=== PATIENT | female | born 1980 | race Caucasian/White ===

== ENCOUNTER → 2018-03-04 | Outpatient (CLI) | payer BC | LOC: FIMAGING 08:48 | PROVIDERS: ATTEND Obstetrics & Gynecology | DX: O09.511 Supervision of elderly primigravida, first trimester (principal); Z3A.12 12 weeks gestation of pregnancy ==

== ENCOUNTER → 2018-05-04 | Outpatient (CLI) | payer BC | LOC: FIMAGING 08:11 | PROVIDERS: ATTEND Obstetrics & Gynecology | DX: O09.512 Supervision of elderly primigravida, second trimester (principal); Z3A.21 21 weeks gestation of pregnancy ==

== ENCOUNTER 2018-09-18 12:45 | Inpatient (IN) | payer BC ==
[2018-09-18] MEDS ORDERED: OLIVE OIL 118 ML BTL MISC PRN (14:32)
[2018-09-18] MEDS ORDERED: MISOPROSTOL 200 MCG TAB PR PRN (14:32)
[2018-09-18] MEDS ORDERED: TERBUTALINE SULFATE 1 MG/ML VIAL IV PRN (14:32)
[2018-09-18] MEDS ORDERED: LIDOCAINE 1% 300 MG/30 ML SDV SC PRN (14:32)
[2018-09-18] MEDS ORDERED: EPSOM SALT 454 GM TP PRN (14:32)
[2018-09-18] MEDS ORDERED: IBUPROFEN 600 MG TAB PO PRN (14:32)
[2018-09-18] MEDS ORDERED: LR 1,000 ML IV PRN (14:32)
[2018-09-18] MEDS ORDERED: OXYTOCIN/RINGERS LACTATE 1,000 ML IV PRN (14:32)
--- NOTE | 2018-09-18 15:14 | PDGENHP ---
History and Physical History and Physical: Care: [facility] HPI: Patient is a 37yo @ 41 weeks that presents to L&D with complaints of contractions since yesterday, but worse since t EDC: 09/12/18 which is based on Ultrasound at 8 weeks. Her is complicated by: AMA, anemia Review of Systems: Constitutional: Denies any fever, chills, or fatigue HEENT: denies any visual changes, difficulty swallowing, hearing loss Cardiovascular: Denies any chest pain, palpitations, leg swelling Respiratory: denies any cough, wheezing, or shortness of breathe GI: Denies any nausea, vomiting, diarrhea, constipation : denies any dysuria, urgency, frequency, vaginal bleeding Musculoskeletal: denies any muscle or bone pain Skin: denies any rashes Neuro: denies any headache, seizures, lightheadedness, dizziness, or loss of consciousness Psychiatric: denies any depression, anxiety, or SI/HI thoughts HISTORY: Previous OB history: G1 Past medical history: none Past surgical history: none Social: Denies any alcohol, tobacco, or drug use. Family history: Not relevant Medications: PNV, iron Allergies (list reaction): NKDA LABS: Rh: A+ ABS: Neg Rubella: Immune HbsAg: NR HIV: NR VDRL: NR 1hr: 86 GC: Neg Chlamydia: Neg Pap: Normal GBS: negative BMI: (prepreg) 19 PHYSICAL EXAM: Constitutional: WN, A&Ox3 HEENT: normocephalic atraumatic, supple Skin: Warm, dry, intact Heart: RRR, no murmur Chest: CTA-B Abdomen: Soft, nontender, gravid SVE: 3/80/-2 Extremities: edema, negative homans sign Neuro: grossly normal Psych: normal affect assessment: FHT baseline 135 +accels, no decels, moderate variability Contractions: toco q 4-6 Assessment: 1) [id number] with IUP@ 2) early labor 3) GBS negative 4) Cat 1 FHR tracing Plan: 1) Admit to L&D 2) expectant management 3) pain management PRN 4) IA 5) anticipate Today's visit was approximately 30 min, of which >50% of visit 20 min, was spent face to face with pt on direct counseling/coordination of care.
[2018-09-18] MEDS ORDERED: LIDOCAINE 1% 300 MG/30 ML SDV ONE (18:20)
[2018-09-18] MEDS ORDERED: OLIVE OIL 118 ML BTL ONE (18:20)
[2018-09-18] MEDS ORDERED: AMMONIA AROMATIC 1 EACH AMP IH ONE (18:21)
[2018-09-18] MEDS ORDERED: OXYTOCIN 10 UNIT/ML VIAL ONE (18:21)
[2018-09-18] MEDS ORDERED: TERBUTALINE SULFATE 1 MG/ML VIAL ONE (18:21)
[2018-09-18] MEDS ORDERED: MISOPROSTOL 200 MCG TAB ONE (18:21)
--- NOTE | 2018-09-18 18:23 | OBPROG ---
Labor Progress Note Assessment/Plan: Assessment: [id number] with IUP@ 40-6ks early/active labor GBS Negative FHR 135 Plan: cont ambulation acupuncture consult expectant management 09/18/18 17:58 Subjective/Intrapartum Course: 09/18/18 18:23 Pt breathing through contractions. Desires vaginal exam. She declines pain relief meds. She is ambulating and considering acupuncture. - SVE Dilation (cm): 5 Effacement (%): 80 Station: -1 Membranes: SROM Amniotic Fluid Color: Clear - Contraction Pattern Assessment Current Contraction Pattern: Regular - FHR Assessment King FHR (bpm): 135 Oxytocin Orders Assessment - Pre-Induction/Augmentation Assessment Gestational Age: 40 week(s) and 6 day(s) ICD10 Worksheet Patient Problems: Problems Problem Status Onset Labor and delivery, indication for care Acute - ICD10 Problem Qualifiers (1) Labor and delivery, indication for care
[2018-09-18] MEDS ORDERED: ONDANSETRON DISINTEGRATING 4 MG TAB PO PRN (20:39)
--- NOTE | 2018-09-18 20:40 | OBPROG ---
Labor Progress Note Assessment/Plan: Assessment: [id number] with IUP@ 40-6ks early/active labor GBS Negative FHR 135 Plan: cont ambulation/position changes expectant management cont acupuncture reassess 2hr/PRN Subjective/Intrapartum Course: 09/18/18 18:23 Pt breathing through contractions. Desires vaginal exam. She declines pain relief meds. She is ambulating and considering acupuncture. - SVE Membranes: SROM Amniotic Fluid Color: Clear - Contraction Pattern Assessment Current Contraction Pattern: Regular - FHR Assessment King FHR (bpm): 142 Oxytocin Orders Assessment - Pre-Induction/Augmentation Assessment Gestational Age: 40 week(s) and 6 day(s) ICD10 Worksheet Patient Problems: Problems Problem Status Onset Labor and delivery, indication for care Acute - ICD10 Problem Qualifiers (1) Labor and delivery, indication for care
[2018-09-18] MEDS ORDERED: diphenhydrAMINE 25 MG CAP PO PRN ×2 (21:39→22:13)
--- NOTE | 2018-09-18 22:23 | OBPROG ---
Labor Progress Note Assessment/Plan: Assessment: [id number] with IUP@ 40-6ks early/active labor GBS Negative FHR 142 Plan: cont ambulation/position changes expectant management Reassess 2hr/PRN Subjective/Intrapartum Course: 09/18/18 18:23 Pt breathing through contractions. Desires vaginal exam. She declines pain relief meds. She is ambulating and considering acupuncture. - SVE Dilation (cm): 6 Effacement (%): 75 Station: -1 Membranes: SROM Amniotic Fluid Color: Clear - Contraction Pattern Assessment Current Contraction Pattern: Regular - FHR Assessment King FHR (bpm): 142 Oxytocin Orders Assessment - Pre-Induction/Augmentation Assessment Gestational Age: 40 week(s) and 6 day(s) ICD10 Worksheet Patient Problems: Problems Problem Status Onset Labor and delivery, indication for care Acute - ICD10 Problem Qualifiers (1) Labor and delivery, indication for care
--- NOTE | 2018-09-19 03:54 | OBPROG ---
Labor Progress Note Assessment/Plan: Assessment: [id number] with IUP@ 40-6ks early/active labor GBS Negative FHR 155 SROM- MSF Plan: cont ambulation/position changes expectant management labor down Reassess 2hr/PRN Subjective/Intrapartum Course: 09/18/18 18:23 Pt breathing through contractions. Desires vaginal exam. She declines pain relief meds. She is ambulating and considering acupuncture. 09/19/18 03:47 Pt doing well, breathing through contractions. starting to have some pressure and feels urge to push. - SVE Dilation (cm): 9 Effacement (%): 80 Station: -1 Membranes: SROM Amniotic Fluid Color: Clear - Contraction Pattern Assessment Current Contraction Pattern: Regular - FHR Assessment King FHR (bpm): 150 Oxytocin Orders Assessment - Pre-Induction/Augmentation Assessment Gestational Age: 40 week(s) and 6 day(s) ICD10 Worksheet Patient Problems: Problems Problem Status Onset Labor and delivery, indication for care Acute - ICD10 Problem Qualifiers (1) Labor and delivery, indication for care
[2018-09-19 07:27] LABS: PLATELET COUNT 131 10^3/uL (150-400)
[2018-09-19] MEDS ORDERED: OXYTOCIN/RINGERS LACTATE 30 UNIT/500 ML BAG IV ONE (07:28)
[2018-09-19] MEDS ORDERED: OXYTOCIN/LR *STANDARD DOSE PROTOCOL IV SCH (08:00)
--- NOTE | 2018-09-19 08:11 | OBPROG ---
Labor Progress Note Assessment/Plan: Assessment: [id number] with IUP@ 40-6ks active labor/protracted GBS Negative FHR 155 SROM- MSF Plan: cont ambulation/position changes expectant management consider pitocin augmentation- pt declines, will start nipple stimulation Reassess 2hr/PRN notified Dr Fraesr of protracted labor 09/19/18 11:10 Subjective/Intrapartum Course: 09/18/18 18:23 Pt breathing through contractions. Desires vaginal exam. She declines pain relief meds. She is ambulating and considering acupuncture. 09/19/18 03:47 Pt doing well, breathing through contractions. starting to have some pressure and feels urge to push. 09/19/18 05:30 Pt involuntarily pushing with contractions. She has some urges to have BM and will attempt with no answer. She is using nitrous off and on for pain relief. JEMIMA Lang, @ BS and supportive. Billet Examiner present. Objective: 09/19/18 07:20 - SVE Dilation (cm): 10 Effacement (%): 100 Station: 0 Membranes: SROM Amniotic Fluid Color: Thick Meconium - Contraction Pattern Assessment Current Contraction Pattern: Irregular - FHR Assessment King FHR (bpm): 140 (early and variable decels noted) FHR Pattern Variability: Moderate FHR Category: 2 Oxytocin Orders Assessment - Pre-Induction/Augmentation Assessment Gestational Age: 40 week(s) and 6 day(s) ICD10 Worksheet Patient Problems: Problems Problem Status Onset Labor and delivery, indication for care Acute - ICD10 Problem Qualifiers (1) Labor and delivery, indication for care
--- NOTE | 2018-09-19 08:16 | OBPROG ---
Labor Progress Note Assessment/Plan: Assessment: [id number] with IUP@ 40-6ks GBS Negative cat 2 FHR tracing SROM- MSF Protracted labor, complete x 6+ hours Plan: start pitocin per protocol reposition consulted Dr Ford- agrees to start pitocin and will start pushing once contractions more frequent anticipate 09/19/18 08:16 Subjective/Intrapartum Course: 09/18/18 18:23 Pt breathing through contractions. Desires vaginal exam. She declines pain relief meds. She is ambulating and considering acupuncture. 09/19/18 03:47 Pt doing well, breathing through contractions. starting to have some pressure and feels urge to push. Objective: 09/19/18 07:20 - SVE Dilation (cm): 10 Effacement (%): 100 Station: 0 Membranes: SROM Amniotic Fluid Color: Thick Meconium - Contraction Pattern Assessment Current Contraction Pattern: Irregular - FHR Assessment King FHR (bpm): 120 FHR Pattern Variability: Moderate FHR Category: 2 Oxytocin Orders Assessment - Pre-Induction/Augmentation Assessment Gestational Age: 40 week(s) and 6 day(s) ICD10 Worksheet Patient Problems: Problems Problem Status Onset Labor and delivery, indication for care Acute - ICD10 Problem Qualifiers (1) Labor and delivery, indication for care
[2018-09-19] MEDS ORDERED: ONDANSETRON 4 MG/2 ML VIAL IVP PRN (09:01)
--- NOTE | 2018-09-19 09:13 | SOAPPROG ---
SOAP Progress Note Assessment/Plan: Assessment: Rebellious St qi and qi/blood stagnation Pulse: Rapid, chi-slightly weak Tongue: Red Plan: Calm Stomach qi and move qi and blood 1st Acupuncture treatment points: [id number]> E-stim., SP6-SP4> E-stim, LV3-SP6> E-Stim. KD3, SP9,8, UB67, UB60, LI4, GB21 Ear: shenmen, pt zero, st, muscle relaxation, Sp, LV, KD Needle retention time an hour but after needles removed acupressure performed for an additional two hours during bath. Acupressure points: LJ Scalp, St ch., Sp ch., ear points, gb21. Then once in bed again did a second set of Acupuncture needle points: Calf points zaina, arm only on right side point zaina, kd3, lv3, sp10, st34>e-stim., ub31-34> e-stim. Needle retention time another 60 minutes. 09/18/18 09:05 09/18/18 09:14 09/18/18 09:28 09/18/18 09:37 Subjective: Patient dilated at 5cm currently, has contractions mild to severe every 3-5 minutes, belching, burping, nausea, gassy, no appetite, thirst some but sipping only on h2o, intense pain, especially on the right lower pelvic area, worse with increased pillow stacking to open pelvic. Back pain, especially on side. Energy-good, sleep- not since 1:30am 09/17/18 mini naps, urination- no problems. Objective: Laboratory Results 09/19/18 07:20 Patient slightly pale in color, mood was calm. - Time Spent With Patient Time Spent With Patient: Total face time spent with patient four hours. Total Acupuncture needle retention time spent with patient 2 hours. Total face to face acupressure time 2 hours. ICD10 Worksheet Patient Problems: Problems Problem Status Onset Labor and delivery, indication for care Acute
[2018-09-19] MEDS ORDERED: HYDROCORTISONE 0.5% CREAM TP PRN (12:52)
[2018-09-19] MEDS ORDERED: SIMETHICONE 80 MG TAB CHEW PO PRN (12:52)
--- NOTE | 2018-09-19 12:59 | OBDEL ---
Info Type: Vaginal Presentation at Delivery: Vertex L&D Analgesia/Anesthesia Type: Nitrous GBS+: No Intrapartum Medications: Generic Name Dose Route Start Last Admin Trade Name Freq PRN Reason Stop Dose Admin Diphenhydramine HCl 25 mg 09/18/18 21:39 09/18/18 21:48 Benadryl PO 03/17/19 21:38 25 mg Q6HRS PRN Administration Itching Oxytocin/Lactated Ringer's 500 mls @ 0 mls/hr 09/19/18 08:00 09/19/18 07:42 Pitocin 30 Units/Lr (Premix) IV 03/18/19 07:59 500 mls CONT CAMILO Administration Protocol Per Protocol Ondansetron HCl 4 mg 09/18/18 20:39 09/18/18 21:06 Zofran Odt PO 03/17/19 20:38 4 mg Q6HRS PRN Administration Nausea/Vomiting, Use 1st Ondansetron HCl 4 mg 09/19/18 09:01 09/19/18 09:06 Zofran IVP 03/18/19 09:00 4 mg Q4HRS PRN Administration Nausea/Vomiting, Can't Take PO Discontinued Medications Generic Name Dose Route Start Last Admin Trade Name Freq PRN Reason Stop Dose Admin Ibuprofen 600 mg 09/18/18 14:32 09/19/18 12:29 Motrin PO 600 mg ONCE PRN Administration post , pain - Hospital Course Intrapartum: 09/18/18 18:23 Pt breathing through contractions. Desires vaginal exam. She declines pain relief meds. She is ambulating and considering acupuncture. 09/19/18 03:47 Pt doing well, breathing through contractions. starting to have some pressure and feels urge to push. 09/19/18 05:30 Pt involuntarily pushing with contractions. She has some urges to have BM and will attempt with no answer. She is using nitrous off and on for pain relief. JEMIMA Lang, @ BS and supportive. Long Term present. Indications for Delivery: Spontaneous Labor, SROM Vaginal Delivery - Delivery Provider Delivery Physician/CNM: Kaya Heller - Labor and Delivery Onset of Contractions Date: 09/18/18 Onset of Contractions Time: 01:30 Onset of Contractions Type: Augmented Rupture of Membranes Date: 09/18/18 Rupture of Membranes Time: 14:30 Rupture of Membranes Type: Spontaneous Amniotic Fluid Color: Thick Meconium Dilation Complete Date: 09/19/18 Dilation Complete Time: 01:00 Placenta Delivery Date: 09/19/18 Placenta Delivery Time: 10:24 Total Hours of Labor: 33 Laceration: 2nd Degree Repair: 3-0, 4-0, Vicryl, Chromic Vaginal Sponge Count Correct: Yes Vaginal Needle Count Correct: Yes Vaginal Sweep Performed: Yes EBL: 250 Delivery Events: None Delivery Comment: Dr Ford called for vacuum 2/2 prolong pushing and decelerations. Vacuum was applied and 2 pulls were used to bring head under pubic bone, vaccuum was then taken off and baby delivered without difficulty. Cord Gases: Cord Gases Cord Blood PCO2 51.1 mmHg (37-60) 09/19/18 10:23 Cord Base Excess -8.0 mEq/L (-13.6--3.2) 09/19/18 10:23 Cord ABG pH 7.22 (7.10-7.37) 09/19/18 10:23 Cord VBG pH 7.28 (7.20-7.42) 09/19/18 10:23 - Medications Labor Augmentation/Induction Methods Used: Pitocin Labor Augmentation/Induction Indication: Inadequate Contraction Frequency, Inadequate Contraction Strength Operative Report - Delivery Cord Gases: Cord Gases Cord Blood PCO2 51.1 mmHg (37-60) 09/19/18 10:23 Cord Base Excess -8.0 mEq/L (-13.6--3.2) 09/19/18 10:23 Cord ABG pH 7.22 (7.10-7.37) 09/19/18 10:23 Cord VBG pH 7.28 (7.20-7.42) 09/19/18 10:23 [place] Data JAYCE: 09/12/18 Gestational Age: 41 week(s) and 0 day(s) King Delivery Date: 09/19/18 Delivery Time: 10:18 Sex of Infant: Female ICD10 Worksheet Patient Problems: Problems Problem Status Onset Labor and delivery, indication for care Acute Meconium in amniotic fluid Acute - ICD10 Problem Qualifiers (1) Labor and delivery, indication for care (2) Meconium in amniotic fluid
[2018-09-19] MEDS: IBUPROFEN 600 MG TAB PO SCH (19:36)
[2018-09-19] MEDS: ACETAMINOPHEN 325 MG TAB PO SCH (19:37)
[2018-09-20] MEDS: IBUPROFEN 600 MG TAB PO SCH ×4 (01:35→20:16)
[2018-09-20] MEDS: ACETAMINOPHEN 325 MG TAB PO SCH ×4 (02:24→20:16)
[2018-09-20] MEDS: DOCUSATE SODIUM 100 MG CAP PO PRN ×2 (12:46→20:17)
--- NOTE | 2018-09-20 13:33 | OBPP ---
Progress Note Assessment/Plan: Assessment: Plan: 09/20/18 13:33 PPD #1 Establishing Plans discharge home tomorrow 09/20/18 13:33 Subjective/ Course: 09/20/18 13:38 Doing well. States she is sore but pain well controlled with tylenol and ibuprofen. bleeding minimal. Baby has been latching well today and nursing. She is pumping as well as baby is jaundiced and requiring bili lights. Happy with experience. Objective: 09/19/18 22:20 Patient ABO/Rh A POSITIVE 09/19/18 07:20 Temp Pulse Resp BP Pulse Ox 36.1 C 89 18 102/63 93 09/20/18 08:00 09/20/18 08:00 09/20/18 08:00 09/20/18 08:00 09/19/18 20:00 Breasts: Nipples intact bilaterally, breasts soft Uterine Position/Fundal Height: Umbilicus -1 Uterine Tone: Firm
[2018-09-21] MEDS: IBUPROFEN 600 MG TAB PO SCH ×3 (04:20→14:10)
[2018-09-21] MEDS: ACETAMINOPHEN 325 MG TAB PO SCH ×3 (04:20→14:10)
--- NOTE | 2018-09-21 10:34 | OBGCSDC ---
General Delivery Information - General Info : 1 Para: 1 Abortions: 0 Type: Vaginal L&D Analgesia/Anesthesia Type: Nitrous Admission Date: 09/18/18 Labs: Patient ABO/Rh A POSITIVE 09/19/18 07:20 Hct 33.7 % (38.0-47.0) L 09/19/18 22:20 - Hospital Course Intrapartum: 09/18/18 18:23 Pt breathing through contractions. Desires vaginal exam. She declines pain relief meds. She is ambulating and considering acupuncture. 09/19/18 03:47 Pt doing well, breathing through contractions. starting to have some pressure and feels urge to push. 09/19/18 05:30 Pt involuntarily pushing with contractions. She has some urges to have BM and will attempt with no answer. She is using nitrous off and on for pain relief. JEMIMA Lang, @ BS and supportive. Ground Source Heat Pump Technician present. : 09/20/18 13:38 Doing well. States she is sore but pain well controlled with tylenol and ibuprofen. bleeding minimal. Baby has been latching well today and nursing. She is pumping as well as baby is jaundiced and requiring bili lights. Happy with experience. 09/21/18 10:33 S) Pt doing well, reports min pain and bleeding. she is ambulating and voiding without difficulty. She is . She desires discharge home today. O) VSS, afebrile constitutional: WNWF, A&Ox3 HEENT: normocephalic, atraumatic, supple Heart: RRR, No murmur Chest: CTA-B Abdomen: Soft, nontender Uterus: Firm at U-2 Lochia: Minimal rubra Perineum: Intact, healing well Extremities: Trace edema, and negative Ed's sign Neuro: Grossly normal A) 37 year-old P1 S/P PPD#2 P) Discharge home today Continue Pelvic rest x6wks Discussed danger signs (infection, preeclampsia, depression, heavy bleeding, etc) RTO in 2/4/6 weeks Vaginal - Delivery Provider Delivery Physician/CNM: Kaya Heller - Diagnosis Labor: Augmented Rupture of Membranes Type: Spontaneous Amniotic Fluid Color: Thick Meconium Laceration: 2nd Degree Repair: 3-0, 4-0, Vicryl, Chromic Delivery Events: None - Delivery EBL: 250 [place] Data JAYCE: 09/12/18 Gestational Age: 41 week(s) and 2 day(s) King Delivery Date: 09/19/18 Delivery Time: 10:18 Sex of Infant: Female [place] Weight (gm): 3224 g Score (1 Min): 4 Score (5 Min): 6 Score (10 Min): 8 Discharge Information - Discharge Information Prescriptions: Docusate Sodium [Colace 100 MG (*)] 100 mg PO BID PRN #60 cap PRN Reason: Constipation Ibuprofen [Motrin (*)] 600 mg PO Q6H #40 tab Condition: Good
[2018-09-21] MEDS: DOCUSATE SODIUM 100 MG CAP PO PRN (11:54)
[2018-09-21 12:04] VITALS: BP 104/72
== END 2018-09-21 14:11 | disposition home or self-care (01) | DRG 807 ==
LOC: OBSVTOIN 12:45 → FLD 12:45 → FOB 09-19 13:41
PROVIDERS: ADMIT Advanced Practice Midwife; ATTEND Advanced Practice Midwife
PROC: 10D07Z6 Extraction of Products of Conception, Vacuum, Via Natural or Artificial Opening (ICD-10-PCS; principal; 2018-09-19)
DX: O48.0 Post-term pregnancy (principal); O99.02 Anemia complicating childbirth; Z3A.41 41 weeks gestation of pregnancy; Z37.0 Single live birth
CPT/HCPCS: J2405; J2590; J3105